=== PATIENT | female | born 1995 | race Caucasian/White ===

== ENCOUNTER 2018-12-05 08:00 | Emergency (ER) | payer SELFPAY, OTHER ==
[2018-12-05] MEDS: IBUPROFEN 800 MG TAB PO (08:24)
== END 2018-12-05 08:39 | disposition home or self-care (01) ==
LOC: FTE 08:39
DX: S01.511A Laceration without foreign body of lip, initial encounter (principal); W01.198A Fall on same level from slipping, tripping and stumbling with subsequent striking against other object, initial encounter; Y92.9 Unspecified place or not applicable
CPT/HCPCS: 99282